=== PATIENT | female | born 1950 | race Caucasian/White ===

== ENCOUNTER 2018-09-01 21:31 | Emergency (ER) | payer MEDICARE ==
[2018-09-01] MEDS ORDERED: KETOROLAC TROMETHAMINE 30MG/ML ONE (22:05)
[2018-09-01] MEDS ORDERED: SODIUM CHLORIDE 0.9% 1000ML 1,000 ML IV ONE (22:05)
[2018-09-01] MEDS ORDERED: ONDANSETRON HCL 4 MG/2 ML VIAL ONE (22:05)
[2018-09-01 22:08] LABS: BASOPHILS % (AUTO) 0.2 % (0.0-5.0); EOSINOPHILS % (AUTO) 0.1 % (0.0-8.0); HEMATOCRIT 43.6 % (36-48); LYMPHOCYTES % (AUTO) 6.1 % (21.0-51.0); MEAN CORPUSCULAR HEMOGLOBIN 31.9 pg (27.0-33.0); MEAN CORPUSCULAR HGB CONC 33.9 g/dL (32.0-36.0); MONOCYTES % (AUTO) 3.9 % (3.0-13.0); NEUTROPHILS % (AUTO) 89.7 % (40.0-77.0); PLATELET COUNT (AUTO) 231 K/uL (130-400); RED BLOOD CELL COUNT(AUTO) 4.63 MIL/uL (4.00-5.50); RED CELL DISTRIBUTION WIDTH 12.9 % (11.0-15.5); WHITE BLOOD COUNT (AUTO) 13.3 K/uL (4.8-10.8)
[2018-09-01 22:14] LABS: APPEARANCE,URINE CLEAR (CLEAR); BILIRUBIN,URINE NEGATIVE (NEGATIVE); GLUCOSE, URINE (UA) 250 mg/dL (NEGATIVE); KETONES,URINE 15 mg/dL (NEGATIVE); LEUKOCYTE ESTERASE ,URINE NEGATIVE (NEGATIVE); NITRATE,URINE POSITIVE (NEGATIVE); OCCULT BLOOD,URINE TRACE-INTACT (NEGATIVE); PROTEIN,URINE >=300 mg/dL (NEGATIVE); UROBILINOGEN,URINE >=8.0 mg/dL (0.2-1.0)
[2018-09-01 22:18] LABS: CREATININE 0.9 mg/dL (0.5-1.5); POTASSIUM 4.1 mmol/L (3.5-5.1)
[2018-09-01 22:19] LABS: COLOR,URINE YELLOW (YELLOW)
[2018-09-01 22:20] LABS: INR 0.91 (0.85-1.15); PARTIAL THROMBOPLASTIN TIME 28.7 SEC (26.3-35.5); PROTHROMBIN TIME 9.6 SEC (9.6-11.6)
[2018-09-01 22:22] LABS: ALBUMIN 4.2 g/dL (3.5-5.0); BILIRUBIN,TOTAL 0.5 mg/dL (0.2-1.0); TOTAL PROTEIN, SERUM 7.4 g/dL (6.0-8.3)
[2018-09-01 22:39] LABS: BACTERIA,URINE Many /HPF (None Seen); MUCUS,URINE None Seen LPF (None Seen); RBC,URINE 0-1 /HPF (0-1); SQUAMOUS EPITHELIAL CELL,UR None Seen /HPF (0-2)
== END 2018-09-02 00:05 | disposition home or self-care (01) ==
LOC: EDH 21:31
DX: N20.0 Calculus of kidney (principal); R11.2 Nausea with vomiting, unspecified; Z88.6 Allergy status to analgesic agent
CPT/HCPCS: 36415; 71045; 74176; 80053; 81001; 82550; 83690; 84484; 85025; 85610; 85730; 93005; 96361; 96374; 96375; 99285; J1885; J2405; J7030

== ENCOUNTER 2023-09-27 12:02 | Emergency (ER) | payer MEDICARE ==
[~2023-09-27] VITALS: Ht 165.1 cm; Wt 59.0 kg
[2023-09-27 13:13] LABS: HEMATOCRIT 40.7 % (36-48); MEAN CORPUSCULAR HEMOGLOBIN 31.1 pg (27.0-33.0); MEAN CORPUSCULAR HGB CONC 34.4 g/dL (32.0-36.0); MEAN CORPUSCULAR VOLUME 90.4 fL (79-99); PLATELET COUNT (AUTO) 223 K/uL (130-400); RED CELL DISTRIBUTION WIDTH 12.6 % (11.0-15.5); WHITE BLOOD COUNT (AUTO) 9.4 K/uL (4.8-10.8)
[2023-09-27 13:16] LABS: APPEARANCE,URINE CLEAR (CLEAR); BILIRUBIN,URINE NEGATIVE (NEGATIVE); COLOR,URINE COLORLESS (YELLOW); GLUCOSE, URINE (UA) NEGATIVE (NEGATIVE); KETONES,URINE NEGATIVE (NEGATIVE); LEUKOCYTE ESTERASE ,URINE NEGATIVE Leu/uL (NEGATIVE); NITRATE,URINE NEGATIVE (NEGATIVE); PROTEIN,URINE NEGATIVE (NEGATIVE); UROBILINOGEN,URINE 0.2 mg/dL (0.2-1.0)
[2023-09-27 13:19] LABS: CREATININE 1.1 mg/dL (0.5-1.0); POTASSIUM 4.6 mmol/L (3.5-5.1)
[2023-09-27 13:31] LABS: ADD UA MICROSCOPIC YES
[2023-09-27 13:36] LABS: BASOPHILS # (AUTO) 0.03 K/uL (0.00-0.20); BASOPHILS % (AUTO) 0.3 % (0.0-5.0); EOSINOPHILS # (AUTO) 0.03 K/uL (0.00-0.70); EOSINOPHILS % (AUTO) 0.3 % (0.0-8.0); IMMATURE GRANULOCYTE ABSOLUTE 0.02 K/uL (0-1); LYMPHOCYTES # (AUTO) 1.3 K/uL (1.0-4.8); LYMPHOCYTES % (AUTO) 14.1 % (21.0-51.0); MONOCYTES # (AUTO) 0.7 K/uL (0.1-1.0); MONOCYTES % (AUTO) 7.8 % (3.0-13.0); NEUTROPHILS # (AUTO) 7.2 K/uL (1.8-7.7); NEUTROPHILS % (AUTO) 77.3 % (40.0-77.0)
[2023-09-27] MEDS: ONDANSETRON 4MG INJ IVP ONE (13:43)
[2023-09-27] MEDS: TAMSULOSIN HCL 0.4 MG CAP.ER.24H PO STA (13:44)
[2023-09-27] MEDS: KETOROLAC 15MG/ML VIAL (15MG/ML) IV ONE (13:44)
[2023-09-27 13:52] LABS: MUCUS,URINE RARE LPF (None Seen); RBC,URINE 0-1 /HPF (0-1); SQUAMOUS EPITHELIAL CELL,UR RARE /HPF (0-2); WBC,URINE 0-1 /HPF (0-1)
[2023-09-27] MEDS: CEFTRIAXONE 2GM VIAL IVPB ONE (13:57)
[2023-09-27] MEDS: 0.9%NACL 1000ML 1,000 ML IV ONE (13:58)
[2023-09-27 14:56] VITALS: BP 138/73; PULSE 77; RESP 20; O2SAT 98
[2023-09-27] MEDS ORDERED: TAMS-1 PO (15:05)
[2023-09-27] MEDS ORDERED: KETO10TA2 PO (15:05)
[2023-09-27] MEDS ORDERED: MACR100 PO (15:05)
== END 2023-09-27 15:23 | disposition home or self-care (01) ==
LOC: EDH 12:02
DX: N20.9 Urinary calculus, unspecified (principal); N23 Unspecified renal colic; N30.00 Acute cystitis without hematuria; Z88.5 Allergy status to narcotic agent; Z98.890 Other specified postprocedural states
CPT/HCPCS: 99285; 74176; 96365; 96375; 80048; 83690; 85025; 87040; 83605; 81001; 36415; J7030; J0696; J2405; J1885

== ENCOUNTER → 2024-03-10 | Outpatient (CLI) | payer MEDICARE ==
[~2024-03-10] MED LIST: KETO10TA2 PO; MACR100 PO; TAMS-1 PO
--- NOTE | 2024-03-10 14:06 | HMCIMG ---
CT CHEST HIGH RESOLUTION (WO) REASON: SHORTNESS OF BREATH COMPARISON: None TECHNIQUE: Images are obtained from thoracic inlet through the symphysis pubis at 5 mm section thickness. Additional 1 mm images are obtained at intervals throughout both lungs in inspiration and in expiration. Sagittal and coronal reconstruction images were performed as well. FINDINGS: There is normal-appearing pulmonary parenchyma. Interstitial pattern appears unremarkable. There are no blebs or bulla. There are no emphysematous changes. There is no honeycombing or bronchiectasis. There are no focal masses. There are no focal infiltrates. There are no pleural effusions. Heart size is normal with no pulmonary vascular congestion. There is no hilar or mediastinal lymphadenopathy. Chest wall structures appear normal. Visualized upper abdominal structures are unremarkable. IMPRESSION: 1. Negative high resolution CT chest, the pulmonary interstitial pattern appears normal.
== END | disposition home or self-care (01) ==
LOC: RAH 13:11
PROVIDERS: ATTEND Internal Medicine Critical Care Medicine
DX: R06.02 Shortness of breath (principal)
CPT/HCPCS: 71250

== ENCOUNTER → 2024-04-07 | Outpatient (CLI) | payer MEDICARE ==
--- NOTE | 2024-04-08 12:23 | HMCSR ---
APPROVED REPORT EXAM: Two-dimensional and M-mode echocardiogram with Doppler and color Doppler. INDICATION ICD: R06.00 Dyspnea Murmur 2D Dimensions RVDd3.7 cmLVEF(%)62.4 (>50%)LVED Vol(simp.)84.0 mL IVSd0.7 (0.7-1.1cm)FS(%)34 %LVES Vol(simp.)41.0 mL LVDd4.4 (3.8-5.6cm)Ao Root(2D)2.8 (2.0-3.7cm)LVEF(%, simp.)51 % PWd0.8 (0.7-1.1cm)LVOT diam2.1 (1.8-2.4cm)LA ESV INDEX (BP)16.98 mL/m2 LVDs3.0 (2.5-4.0cm)IVC diam2.1 cm Aortic Valve AoV Vmax1.2 m/Lissette Peak GR5.5 mmHgLVOT Vmax0.9 m/s AoV VTI0.3 mAo Mean GR3.3 mmHgLVOT VTI0.19 m VALDEMAR (VMAX)2.6 cm2AVA (VTI) 2.6 cm2 Mitral Valve MV E Vmax85.5 cm/sDECEL Hkmq610 ms MV A Vmax91.0 cm/sP 1/2 T52 ms E/A ratio0.9MVA (PHT)4.2 cm2 TDI E/E' Eeojnd84.1E/E' Lateral7.8 Pulmonary Valve PV Vmax1.0 m/sPV VTI0.23 mPV Mean GR2 mmHg PV Peak GR4.2 mmHg Tricuspid Valve TR Vmax2.1 m/sRAP (EST) 8 hoHqIOFL10.1 mmHg TR Peak GR17.1 mmHg Left Ventricle Left ventricular cavity size is normal. There is normal LV segmental wall motion. There is normal lef t ventricular wall thickness. LVEF is 55%. No left ventricle thrombus noted on this study. Indetermin ate diastolic dysfunction. Right Ventricle The right ventricle is normal size. The right ventricular systolic function is normal. Atria The left atrium size is normal. The right atrium is mildly dilated. Aortic Valve Aortic valve is trileaflet. Aortic valve leaflets are sclerotic but open well. Trace aortic regurgita tion. There is no aortic valvular stenosis. Mitral Valve The mitral valve is mildly thickened. Mitral regurgitation is trace. There is no mitral valve stenosi s. Tricuspid Valve The tricuspid valve leaflets appear normal. There is trace tricuspid regurgitation. Pulmonic Valve Pulmonic valve is not well visualized. There is trace pulmonic valvular regurgitation. Great Vessels The aortic root is normal in size. IVC is dilated and collapses >50% with inspiration. Pericardium No pericardial effusion. Conclusion Left ventricular cavity size is normal. LVEF is 55%. The right ventricle is normal size. The left atrium size is normal. Aortic valve is trileaflet. Aortic valve leaflets are sclerotic but open well. Trace aortic regurgitation. The mitral valve is mildly thickened. Mitral regurgitation is trace. There is no mitral valve stenosis. There is trace tricuspid regurgitation. The aortic root is normal in size. IVC is dilated and collapses >50% with inspiration. No pericardial effusion.
== END | disposition home or self-care (01) ==
LOC: SHCH 15:35
PROVIDERS: ATTEND Internal Medicine Cardiovascular Disease
DX: I08.0 Rheumatic disorders of both mitral and aortic valves (principal); R06.00 Dyspnea, unspecified; R01.1 Cardiac murmur, unspecified
CPT/HCPCS: 93306